=== PATIENT | female | born 1990 | race Caucasian/White ===

== ENCOUNTER → 2019-02-17 | Outpatient (CLI) | payer OTHER | END | disposition home or self-care (01) | LOC: LAB EV 16:33 | DX: R10.13 Epigastric pain (principal) | CPT/HCPCS: 87338 ==

== ENCOUNTER → 2020-07-23 | Outpatient (CLI) | payer OTHER ==
[2020-07-27 09:42] LABS: Stool Occult Bld Immuno 1 Positive (NEGATIVE)
== END | disposition home or self-care (01) ==
LOC: LAB SHORT 19:09 → PLD 19:09 → LAB SHORT 07-26 13:06 → LAB FUT 07-23 12:05
PROVIDERS: Student in an Organized Health Care Education/Training Program
DX: K92.1 Melena (principal)
CPT/HCPCS: 82274; 83631

== ENCOUNTER → 2020-11-30 | Outpatient (CLI) | payer OTHER | LOC: LAB EV 09:54 → LAB SHORT 09:54 | DX: R05 Cough (principal) | CPT/HCPCS: 87015; 87116; 87206 ==

== ENCOUNTER → 2022-09-21 | Outpatient (CLI) | payer BC ==
[2022-09-28 13:12] LABS: HPV 16 Negative (Negative); HPV 18 Negative (Negative); HPV OTHER HR TYPES Negative (Negative)
== END ==
LOC: LAB 16:00 → LAB SHORT 16:00
PROVIDERS: Physician Assistant
DX: Z01.419 Encounter for gynecological examination (general) (routine) without abnormal findings (principal)
CPT/HCPCS: 87624; 88175